=== PATIENT | female | born 1940 | race Two or more races ===

== ENCOUNTER 2023-09-23 13:52 | Inpatient (IN) | payer MEDICARE ==
[~2023-09-23] VITALS: Ht 162.6 cm; Wt 68.8 kg
[2023-09-23 14:52] LABS: CK-MB VALUE MASS < 1.0 NG/ML (<3.6)
[2023-09-23 14:53] LABS: BLOOD UREA NITROGEN 16 MG/DL (9-23); CALCIUM LEVEL 9.1 MG/DL (8.3-10.6); CARBON DIOXIDE LEVEL 31 MMOL/L (20-31); CHLORIDE LEVEL 106 MMOL/L (98-107); CPK CREATINE PHOSPHOKINASE 76 U/L (34-145); CREATININE FOR GFR 0.98 MG/DL (0.55-1.30); GLUCOSE, FASTING 96 MG/DL (74-106); MB/CK RELATIVE INDEX 1.31 (< OR =4); POTASSIUM SERUM 3.9 MMOL/L (3.5-5.1); SODIUM LEVEL 141 MMOL/L (136-145)
[2023-09-23 15:37] LABS: ALBUMIN 3.1 G/DL (3.2-5.2); ALKALINE PHOSPHATASE 76 U/L (46-116); ALT/SGPT 13 U/L (7.0-40); AST/SGOT 16 U/L (<34); BILIRUBIN,DIRECT 0.1 MG/DL (<0.4); BILIRUBIN,TOTAL 0.3 MG/DL (0.3-1.2)
[2023-09-23 15:38] LABS: BASO % 0.2 % (0.0-1.0); EOS # 0.5 10^3/uL (0.0-0.5); EOS % 5.9 % (0.0-3.0); HEMATOCRIT 35.5 % (36.0-47.0); HEMOGLOBIN 11.4 g/dl (12.0-15.5); LYMPH # 1.4 10^3/uL (1.5-5.0); LYMPH % 17.1 % (24.0-44.0); MEAN CORPUSCULAR HEMOGLOBIN 29.4 pg (27.0-33.0); MEAN CORPUSCULAR HGB CONC 32.1 g/dl (32.0-36.5); MEAN CORPUSCULAR VOLUME 91.5 fl (80.0-96.0); MONO # 0.7 10^3/uL (0.0-0.8); MONO % 8.9 % (2.0-8.0); NEUTROPHILS # 5.5 10^3/uL (1.5-8.5); NEUTROPHILS % 66.9 % (36.0-66.0); PLATELET COUNT, AUTOMATED 278 10^3/uL (150-450); RED BLOOD COUNT 3.88 10^6/uL (4.00-5.40); WHITE BLOOD COUNT 8.2 10^3/uL (4.0-10.0)
[2023-09-23 15:51] LABS: INR 1.02; PARTIAL THROMBOPLASTIN TIME 27.4 SECONDS (24.8-34.2); PROTHROMBIN TIME 13.1 SECONDS (12.5-14.5)
[2023-09-23] MEDS ORDERED: MOM 30ML SUSPENSION UDC PO PRN (16:20)
[2023-09-23] MEDS ORDERED: LOSA50TA5 PO (17:33)
[2023-09-23] MEDS ORDERED: DONE5TAB86 PO (17:33)
[2023-09-23] MEDS ORDERED: BUSP5TA PO (17:33)
[2023-09-23] MEDS ORDERED: MAGN400C PO (17:33)
[2023-09-23] MEDS ORDERED: ARIC1TAB PO (17:33)
[2023-09-23] MEDS ORDERED: MECL50TA PO (17:33)
[2023-09-23] MEDS ORDERED: ATOR1TAB21 PO (17:33)
[2023-09-23] MEDS ORDERED: OYST500C PO (17:33)
[2023-09-23] MEDS ORDERED: DULO30CA9 PO (17:33)
[2023-09-23] MEDS ORDERED: ALEN70TA82 PO (17:33)
[2023-09-23] MEDS ORDERED: FLOM0.4C39 PO (17:33)
[2023-09-23] MEDS ORDERED: MELA5TAB58 PO (17:33)
[2023-09-23] MEDS ORDERED: NEUR300C PO (17:33)
[2023-09-23] MEDS ORDERED: MELO15TA28 PO (17:33)
[2023-09-23] MEDS ORDERED: B-12100010 PO (17:33)
[2023-09-23] MEDS ORDERED: ACET325C5 PO (17:33)
[2023-09-23] MEDS ORDERED: STOO100C30 PO (17:33)
[2023-09-23] MEDS ORDERED: HOME MED LIST COMPLETE! XX SCH (17:35)
[2023-09-23] MEDS: MORPHINE 2 MG/ML 1ML VIAL IV STA (18:40)
[2023-09-23] MEDS: D5W/0.9% SODIUM CHLORIDE 1,000 ML IV SCH (20:59)
[2023-09-23] MEDS: busPIRone 5 MG TAB PO SCH (21:00)
[2023-09-23] MEDS: QUEtiapine FUMARATE 50MG TAB PO SCH (21:00)
[2023-09-23] MEDS: **hydrALAZINE HCL** 25 MG TAB PO SCH (21:00)
[2023-09-23] MEDS: DOCUSATE SODIUM 100MG CAPSULE PO SCH (21:00)
[2023-09-23] MEDS: TAMSULOSIN 0.4 MG CAP PO SCH (21:00)
[2023-09-23] MEDS: SENNA 8.6 MG TAB (SENOKOT) PO SCH (21:00)
[2023-09-23] MEDS: KETOROLAC 30 MG/ML 1ML VIAL IV SCH (21:01)
[2023-09-23] MEDS: MORPHINE 2 MG/ML 1ML VIAL IV PRN (21:12)
[2023-09-23] MEDS: DONEPEZIL 5 MG TAB PO SCH (21:17)
[2023-09-23 22:25] VITALS: BP 156/73; TEMP 97.9; O2SAT 95
[2023-09-24] VITALS (8 sets, daily range): BP systolic 94–148; BP diastolic 53–71; TEMP 97.5–98.8; O2SAT 92–97
[2023-09-24 07:18] LABS: BASO % 0.4 % (0.0-1.0); EOS # 0.5 10^3/uL (0.0-0.5); EOS % 4.9 % (0.0-3.0); HEMATOCRIT 32.8 % (36.0-47.0); HEMOGLOBIN 10.8 g/dl (12.0-15.5); LYMPH % 9.8 % (24.0-44.0); MEAN CORPUSCULAR HEMOGLOBIN 29.3 pg (27.0-33.0); MEAN CORPUSCULAR HGB CONC 32.9 g/dl (32.0-36.5); MEAN CORPUSCULAR VOLUME 88.9 fl (80.0-96.0); MONO % 8.9 % (2.0-8.0); NEUTROPHILS % 75.3 % (36.0-66.0); PLATELET COUNT, AUTOMATED 229 10^3/uL (150-450); RED BLOOD COUNT 3.69 10^6/uL (4.00-5.40); WHITE BLOOD COUNT 10.6 10^3/uL (4.0-10.0)
[2023-09-24 07:48] LABS: BLOOD UREA NITROGEN 17 MG/DL (9-23); CALCIUM LEVEL 8.6 MG/DL (8.3-10.6); CARBON DIOXIDE LEVEL 26 MMOL/L (20-31); CHLORIDE LEVEL 109 MMOL/L (98-107); CREATININE FOR GFR 0.78 MG/DL (0.55-1.30); GLOMERULAR FILTRATION RATE > 60.0 (>32); GLUCOSE, FASTING 127 MG/DL (74-106); POTASSIUM SERUM 3.4 MMOL/L (3.5-5.1); SODIUM LEVEL 142 MMOL/L (136-145)
[2023-09-24] MEDS: ATORVASTATIN 20 MG TAB PO SCH (08:05)
[2023-09-24] MEDS: CYANOCOBALAMIN 500 MCG TAB PO SCH (08:05)
[2023-09-24] MEDS: GABAPENTIN 300 MG CAP PO SCH (08:05)
[2023-09-24] MEDS: DULoxetine 30MG CAPSULE (CYMBALTA) PO SCH (08:05)
[2023-09-24] MEDS: ENOXAPARIN 40MG/0.4ML SYRINGE (J1650 PER 10MG) SC SCH (08:08)
[2023-09-24] MEDS ORDERED: ROCURONIUM BROMIDE 50MG/5ML VIAL As Ordered ONE (14:45)
[2023-09-24] MEDS ORDERED: propofoL 200 MG/20 ML VIAL As Ordered ONE (14:45)
[2023-09-24] MEDS ORDERED: SUGAMMADEX SODIUM 500 MG/5 ML VIAL (BRIDION) As Ordered ONE (14:45)
[2023-09-24] MEDS ORDERED: LIDOCAINE 2% 100MG/5ML SDV (FOR ANES.) As Ordered ONE (14:45)
[2023-09-24] MEDS ORDERED: ONDANSETRON 4MG 2ML VIAL As Ordered ONE (14:46)
[2023-09-24] MEDS ORDERED: fentaNYL 100 MCG/2 ML INJECTION As Ordered ONE (14:49)
[2023-09-24] MEDS: LIDOCAINE W/EPINEPHRINE 1% 20ML VIAL As Ordered ONE (15:00)
[2023-09-24] MEDS: TRANEXAMIC ACID 100 MG/ML 10ML VIAL As Ordered ONE (15:00)
[2023-09-24] MEDS: ceFAZolin 2 GM/D5W 50 ML IV BAG As Ordered ONE (15:58)
[2023-09-24] MEDS ORDERED: ACETAMINOPHEN 1000MG 100ML IV BAG As Ordered ONE (16:13)
[2023-09-24] MEDS ORDERED: ePHEDrine SULFATE 25 MG/5 ML(5MG/ML) SYRINGE As Ordered ONE (16:14)
[2023-09-24] MEDS ORDERED: fentaNYL 100 MCG/2 ML INJECTION IV PRN (17:05)
[2023-09-24] MEDS ORDERED: oxyCODONE 5MG TAB PO PRN ×2 (17:05→17:45)
[2023-09-24] MEDS: LR 1,000 ML IV SCH ×2 (17:05→18:35)
[2023-09-24] MEDS ORDERED: ONDANSETRON 4MG 2ML VIAL IV PRN ×2 (17:05→17:45)
[2023-09-24] MEDS ORDERED: HYDROMORPHONE HCL 0.5 MG/ 0.5 ML SYRINGE IV PRN (17:05)
[2023-09-24] MEDS ORDERED: SENNA 8.6 MG TAB (SENOKOT) PO PRN (17:45)
[2023-09-24] MEDS: NAPROXEN 250 MG TAB PO SCH (20:35)
[2023-09-24] MEDS: ASPIRIN 81MG ENTERIC TABLET PO SCH (20:35)
[2023-09-24] MEDS ORDERED: DOCUSATE SODIUM 100MG CAPSULE PO SCH (21:00)
[2023-09-24] MEDS: ACETAMINOPHEN TAB 650MG DOSE (2X325MG) PO SCH (23:37)
[2023-09-24] MEDS: ceFAZolin SOD 2 GM in IV 1 EA IV SCH (23:38)
[2023-09-25] VITALS (7 sets, daily range): BP systolic 98–136; BP diastolic 45–75; TEMP 97.2–98.8; O2SAT 95–98
[2023-09-25] MEDS ORDERED: HALOPERIDOL LACTATE 5MG/ML VIAL As Ordered ONE (05:52)
[2023-09-25] MEDS: HALOPERIDOL LACTATE 5MG/ML VIAL IM PRN (06:12)
[2023-09-25 08:52] LABS: BASO % 0.2 % (0.0-1.0); EOS # 0.2 10^3/uL (0.0-0.5); EOS % 1.6 % (0.0-3.0); HEMATOCRIT 27.3 % (36.0-47.0); HEMOGLOBIN 8.9 g/dl (12.0-15.5); LYMPH # 0.8 10^3/uL (1.5-5.0); LYMPH % 7.7 % (24.0-44.0); MEAN CORPUSCULAR HEMOGLOBIN 29.8 pg (27.0-33.0); MEAN CORPUSCULAR HGB CONC 32.6 g/dl (32.0-36.5); MEAN CORPUSCULAR VOLUME 91.3 fl (80.0-96.0); MONO # 0.5 10^3/uL (0.0-0.8); MONO % 5.2 % (2.0-8.0); NEUTROPHILS # 8.8 10^3/uL (1.5-8.5); NEUTROPHILS % 84.8 % (36.0-66.0); PLATELET COUNT, AUTOMATED 188 10^3/uL (150-450); RED BLOOD COUNT 2.99 10^6/uL (4.00-5.40); WHITE BLOOD COUNT 10.4 10^3/uL (4.0-10.0)
[2023-09-25 09:06] LABS: ALBUMIN 2.5 G/DL (3.2-5.2); ALKALINE PHOSPHATASE 54 U/L (46-116); ALT/SGPT 13 U/L (7.0-40); AST/SGOT 20 U/L (<34); BILIRUBIN,TOTAL 0.4 MG/DL (0.3-1.2); BLOOD UREA NITROGEN 21 MG/DL (9-23); CALCIUM LEVEL 8.6 MG/DL (8.3-10.6); CARBON DIOXIDE LEVEL 24 MMOL/L (20-31); CHLORIDE LEVEL 109 MMOL/L (98-107); CREATININE FOR GFR 0.75 MG/DL (0.55-1.30); GLOMERULAR FILTRATION RATE > 60.0 (>32); GLUCOSE, FASTING 164 MG/DL (74-106); POTASSIUM SERUM 3.9 MMOL/L (3.5-5.1); SODIUM LEVEL 140 MMOL/L (136-145); TOTAL PROTEIN 5.2 G/DL (5.7-8.2)
[2023-09-25] MEDS: ASCORBIC ACID 500 MG TAB PO SCH (09:07)
[2023-09-25] MEDS: GABAPENTIN 300 MG CAP PO SCH (09:07)
[2023-09-25] MEDS: FERROUS SULFATE 325MG TAB PO SCH (09:07)
[2023-09-25] MEDS: QUEtiapine FUMARATE 50MG TAB PO SCH (09:07)
[2023-09-25] MEDS: NS 500 ML IV ONE (15:07)
[2023-09-26 05:37] VITALS: BP 116/58; TEMP 98.1; O2SAT 94
[2023-09-26 09:02] LABS: BASO # 0.1 10^3/uL (0.0-0.2); BASO % 0.5 % (0.0-1.0); EOS # 1.6 10^3/uL (0.0-0.5); EOS % 14.8 % (0.0-3.0); HEMATOCRIT 30.6 % (36.0-47.0); HEMOGLOBIN 9.9 g/dl (12.0-15.5); LYMPH # 1.4 10^3/uL (1.5-5.0); LYMPH % 12.8 % (24.0-44.0); MEAN CORPUSCULAR HEMOGLOBIN 29.9 pg (27.0-33.0); MEAN CORPUSCULAR HGB CONC 32.4 g/dl (32.0-36.5); MEAN CORPUSCULAR VOLUME 92.4 fl (80.0-96.0); MONO # 0.7 10^3/uL (0.0-0.8); MONO % 6.5 % (2.0-8.0); NEUTROPHILS # 6.9 10^3/uL (1.5-8.5); NEUTROPHILS % 64.7 % (36.0-66.0); PLATELET COUNT, AUTOMATED 145 10^3/uL (150-450); RED BLOOD COUNT 3.31 10^6/uL (4.00-5.40); WHITE BLOOD COUNT 10.7 10^3/uL (4.0-10.0)
[2023-09-26 09:32] LABS: ALBUMIN 2.6 G/DL (3.2-5.2); ALKALINE PHOSPHATASE 57 U/L (46-116); ALT/SGPT < 9 U/L (7.0-40); AST/SGOT 17 U/L (<34); BILIRUBIN,TOTAL 0.3 MG/DL (0.3-1.2); BLOOD UREA NITROGEN 23 MG/DL (9-23); CALCIUM LEVEL 8.6 MG/DL (8.3-10.6); CARBON DIOXIDE LEVEL 26 MMOL/L (20-31); CHLORIDE LEVEL 108 MMOL/L (98-107); CREATININE FOR GFR 0.89 MG/DL (0.55-1.30); GLOMERULAR FILTRATION RATE > 60.0 (>32); GLUCOSE, FASTING 118 MG/DL (74-106); POTASSIUM SERUM 3.7 MMOL/L (3.5-5.1); SODIUM LEVEL 141 MMOL/L (136-145); TOTAL PROTEIN 5.2 G/DL (5.7-8.2)
[2023-09-26 14:31] VITALS: BP 101/48; TEMP 98.4; O2SAT 95
[2023-09-26 20:00] VITALS: BP 119/64; TEMP 98.8; O2SAT 95
[2023-09-26] MEDS ORDERED: PILL CUTTER 1 EACH XX ONE (20:45)
[2023-09-26] MEDS: traMADol 50 MG TAB PO SCH (20:55)
[2023-09-27 06:24] LABS: BASO % 0.2 % (0.0-1.0); EOS # 1.4 10^3/uL (0.0-0.5); EOS % 17.1 % (0.0-3.0); HEMATOCRIT 27.1 % (36.0-47.0); HEMOGLOBIN 8.9 g/dl (12.0-15.5); LYMPH # 1.2 10^3/uL (1.5-5.0); LYMPH % 14.5 % (24.0-44.0); MEAN CORPUSCULAR HEMOGLOBIN 29.8 pg (27.0-33.0); MEAN CORPUSCULAR HGB CONC 32.8 g/dl (32.0-36.5); MEAN CORPUSCULAR VOLUME 90.6 fl (80.0-96.0); MONO # 0.9 10^3/uL (0.0-0.8); MONO % 10.7 % (2.0-8.0); NEUTROPHILS # 4.7 10^3/uL (1.5-8.5); PLATELET COUNT, AUTOMATED 225 10^3/uL (150-450); RED BLOOD COUNT 2.99 10^6/uL (4.00-5.40); WHITE BLOOD COUNT 8.2 10^3/uL (4.0-10.0)
[2023-09-27 06:59] LABS: ALBUMIN 2.3 G/DL (3.2-5.2); ALKALINE PHOSPHATASE 53 U/L (46-116); ALT/SGPT < 9 U/L (7.0-40); AST/SGOT 19 U/L (<34); BILIRUBIN,TOTAL 0.4 MG/DL (0.3-1.2); BLOOD UREA NITROGEN 19 MG/DL (9-23); CALCIUM LEVEL 8.5 MG/DL (8.3-10.6); CARBON DIOXIDE LEVEL 28 MMOL/L (20-31); CHLORIDE LEVEL 108 MMOL/L (98-107); CREATININE FOR GFR 0.76 MG/DL (0.55-1.30); GLOMERULAR FILTRATION RATE > 60.0 (>32); GLUCOSE, FASTING 85 MG/DL (74-106); POTASSIUM SERUM 3.9 MMOL/L (3.5-5.1); SODIUM LEVEL 139 MMOL/L (136-145); TOTAL PROTEIN 4.6 G/DL (5.7-8.2)
[2023-09-27 14:00] VITALS: BP 116/60; TEMP 98.6; O2SAT 95
[2023-09-27 19:55] VITALS: BP 127/64; TEMP 98.8; O2SAT 95
[2023-09-28 04:59] VITALS: BP 131/64; TEMP 98.6; O2SAT 96
[2023-09-28 07:51] LABS: BASO % 0.2 % (0.0-1.0); EOS % 10.6 % (0.0-3.0); HEMOGLOBIN 9.9 g/dl (12.0-15.5); LYMPH % 10.9 % (24.0-44.0); MEAN CORPUSCULAR HEMOGLOBIN 29.5 pg (27.0-33.0); MEAN CORPUSCULAR VOLUME 89.3 fl (80.0-96.0); MONO # 0.9 10^3/uL (0.0-0.8); MONO % 9.4 % (2.0-8.0); NEUTROPHILS # 6.3 10^3/uL (1.5-8.5); NEUTROPHILS % 68.4 % (36.0-66.0); PLATELET COUNT, AUTOMATED 288 10^3/uL (150-450); RED BLOOD COUNT 3.36 10^6/uL (4.00-5.40); WHITE BLOOD COUNT 9.2 10^3/uL (4.0-10.0)
[2023-09-28 08:14] LABS: BLOOD UREA NITROGEN 14 MG/DL (9-23); CALCIUM LEVEL 8.9 MG/DL (8.3-10.6); CARBON DIOXIDE LEVEL 30 MMOL/L (20-31); CHLORIDE LEVEL 103 MMOL/L (98-107); CREATININE FOR GFR 0.73 MG/DL (0.55-1.30); GLOMERULAR FILTRATION RATE > 60.0 (>32); GLUCOSE, FASTING 98 MG/DL (74-106); POTASSIUM SERUM 3.9 MMOL/L (3.5-5.1); SODIUM LEVEL 139 MMOL/L (136-145)
[2023-09-28] MEDS: oxyCODONE 5MG TAB PO PRN (13:45)
[2023-09-28 14:00] VITALS: BP 121/53; TEMP 97.7; O2SAT 96
[2023-09-28] MEDS: QUEtiapine FUMARATE 25 MG TAB PO SCH (15:00)
[2023-09-28 23:43] VITALS: BP 117/62; TEMP 98.1; O2SAT 97
[2023-09-29 06:20] VITALS: BP 118/63; TEMP 98.1; O2SAT 95
[2023-09-29] MEDS ORDERED: ASCO50TA PO (13:46)
[2023-09-29] MEDS ORDERED: TRAM50TA2 PO (13:46)
[2023-09-29] MEDS ORDERED: NEUR300C PO (13:46)
[2023-09-29] MEDS ORDERED: ASPI81TAEC PO (13:46)
[2023-09-29] MEDS ORDERED: FERR1TAB8 PO (13:46)
== END 2023-09-29 14:45 | disposition home health service (06) | DRG 481 ==
LOC: EDBD 13:52 → M ED 13:52 → M ED INP 16:16 → M MS5PR 22:39
PROVIDERS: ADMIT Internal Medicine Nephrology; ATTEND Internal Medicine Nephrology
PROC: 0QS606Z Reposition Right Upper Femur with Intramedullary Internal Fixation Device, Open Approach (ICD-10-PCS; principal; 2023-09-26)
DX: S72.144A Nondisplaced intertrochanteric fracture of right femur, initial encounter for closed fracture (principal); F03.B3 Unspecified dementia, moderate, with mood disturbance; F03.B11 Unspecified dementia, moderate, with agitation; I10 Essential (primary) hypertension; R33.9 Retention of urine, unspecified; M81.0 Age-related osteoporosis without current pathological fracture; I71.40 Abdominal aortic aneurysm, without rupture, unspecified; R29.6 Repeated falls; E78.5 Hyperlipidemia, unspecified; W10.8XXA Fall (on) (from) other stairs and steps, initial encounter; Y92.009 Unspecified place in unspecified non-institutional (private) residence as the place of occurrence of the external cause; Z79.899 Other long term (current) drug therapy; Z91.041 Radiographic dye allergy status; Z88.0 Allergy status to penicillin; Z87.891 Personal history of nicotine dependence

== ENCOUNTER → 2023-10-15 | Outpatient (CLI) | payer MEDICARE ==
[~2023-10-15] MED LIST: ACET325C5 PO; ALEN70TA82 PO; ARIC1TAB PO; ASCO50TA PO; ASPI81TAEC PO; ATOR1TAB21 PO; B-12100010 PO; BUSP5TA PO; DONE5TAB86 PO; DULO30CA9 PO; FERR1TAB8 PO; FLOM0.4C39 PO; LOSA50TA5 PO; MAGN400C PO; MECL50TA PO; MELA5TAB58 PO; MELO15TA28 PO; NEUR300C PO; OYST500C PO; STOO100C30 PO; TRAM50TA2 PO
== END ==
LOC: M SOG 08:01
PROVIDERS: ATTEND Orthopaedic Surgery
DX: S72.141A Displaced intertrochanteric fracture of right femur, initial encounter for closed fracture (principal); Y93.9 Activity, unspecified; Y92.9 Unspecified place or not applicable

== ENCOUNTER → 2023-11-11 | Outpatient (CLI) | payer MEDICARE | LOC: M SOG 07:54 | PROVIDERS: ATTEND Orthopaedic Surgery | DX: S72.141D Displaced intertrochanteric fracture of right femur, subsequent encounter for closed fracture with routine healing (principal) ==